=== PATIENT | female | born 1970 | race Caucasian/White ===

== ENCOUNTER 2021-08-05 19:10 | Emergency (ER) | payer OTHER ==
[2021-08-05 20:31] LABS: HEMOGLOBIN 12.9 gm/dl (12.3-15.3); RED BLOOD COUNT 4.06 M/UL (4.00-5.10); WHITE BLOOD COUNT 10.9 K/UL (4.5-11.0)
[2021-08-05 20:53] LABS: BUN/CREATININE RATIO 18 (0-10)
== END 2021-08-05 21:55 | disposition home or self-care (01) ==
LOC: ER1 19:10
PROVIDERS: Physician Assistant; Preventive Medicine Occupational Medicine
DX: R41.82 Altered mental status, unspecified (principal); E03.9 Hypothyroidism, unspecified
CPT/HCPCS: 70450; 80053; 80307; 84439; 84443; 85025; 99285